=== PATIENT | female | born 1940 ===

== ENCOUNTER 2018-07-16 13:11 | Emergency (ER) | payer MEDICARE ==
[2018-07-16 13:11] VITALS: BMI 25.0
--- NOTE | 2018-07-16 13:59 | C.PDOC ---
History Of Present Illness Patient is a 77 year old female with no past medical history who presents for 2- 3 months of generalized right sided body pain especially on her right rib. Patient denies any trauma or falls. Patient cannot describe the pain. Patient says the rib pain is 10/10. Patient denies any chest pain, palpitations, or shortness of breath. Patient denies any fevers, abdominal pain, nausea, vomiting, constipation, or diarrhea. Patient is able to use the right side of her body without difficulty. Patient ambulates without difficulty. Patient recently travelled to [place] about 1 month ago, but says the symptoms started 1-2 months before her trip and have persisted. Time Seen by Provider: 07/16/18 13:59 Chief Complaint (Nursing): Medical Clearance History Per: Patient History/Exam Limitations: no limitations Onset/Duration Of Symptoms: Days Current Symptoms Are (Timing): Still Present Severity: Moderate Past Medical History Vital Signs: Last Vital Signs Temp 98.1 F 07/16/18 13:13 Pulse 64 07/16/18 13:13 Resp BP 165/99 H 07/16/18 13:13 Pulse Ox 97 07/16/18 13:13 - Medical History PMH: No Chronic Diseases Other Surgeries: D+C Family History: States: No Known Family Hx - Social History Hx Tobacco Use: No Hx Alcohol Use: No Hx Substance Use: No - Immunization History Hx Tetanus Toxoid Vaccination: No Hx Influenza Vaccination: Yes Hx Pneumococcal Vaccination: Yes Review Of Systems Constitutional: Negative for: Fever, Chills Cardiovascular: Negative for: Chest Pain, Palpitations Respiratory: Negative for: Cough, Shortness of Breath Gastrointestinal: Negative for: Nausea, Vomiting, Abdominal Pain, Diarrhea, Constipation Genitourinary: Negative for: Dysuria Musculoskeletal: Positive for: Other (generalized right sided body pain) Skin: Negative for: Rash Neurological: Negative for: Weakness, Numbness Physical Exam - Physical Exam Appears: Non-toxic, No Acute Distress Skin: Normal Color, Warm Head: Atraumatic, Normacephalic, No Tenderness Oral Mucosa: Moist Tongue: Normal Appearing Throat: Normal, No Erythema Chest: Other (mild right lower rib pain to palpation) Cardiovascular: Rhythm Regular Respiratory: Normal Breath Sounds, No Decreased Breath Sounds, No Accessory Muscle Use, No Rales, No Rhonchi, No Wheezing Gastrointestinal/Abdominal: Bowel Sounds, Soft, No Tenderness Back: Normal Inspection Extremity: Normal ROM, No Tenderness, No Pedal Edema Neurological/Psych: Oriented x3 Gait: Steady Other Neurological Findings: No Facial Palsy Extremity: Right: No Drift (full ROM), Left: No Drift, Upper: No Drift, Lower: N o Drift ED Course And Treatment O2 Sat by Pulse Oximetry: 97 Medical Decision Making Medical Decision Making: Impression: right sided musculoskeletal pain no acute injury stable for discharge supportive therapy- patient to take Tylenol or Motrin for pain Patient to follow up with PMD. Disposition Counseled Patient/Family Regarding: Diagnosis, Need For Followup - Disposition Referrals: Keyon Banerjee MD [Staff Provider] - Disposition: HOME/ ROUTINE Disposition Time: 14:29 Condition: GOOD Additional Instructions: WARREN BANERJEE, thank you for letting us take care of you today. Your provider was Stormy Jon MD and you were treated for BODYPAIN. The emergency medical care you received today was directed at your acute symptoms. It may take several days for your symptoms to resolve. Return to the Emergency Department if your symptoms worsen, do not improve, or if you have any other problems. Patient may take Motrin or Tylenol as needed for pain. Please contact your doctor or call one of the physicians/clinics you have been referred to that are listed on the Patient Visit Information form that is included in your discharge packet. Bring any paperwork you were given at discharge with you along with any medications you are taking to your follow up visit. Our treatment cannot replace ongoing medical care by a primary care provider outside of the emergency department. Thank you for allowing the [facility] team to be part of your care today. Instructions: High Blood Pressure (DC), Muscle and Bone Pain (DC) Forms: [facility] (Mauritian) - Clinical Impression Clinical Impression: Pain of right side of body
[2018-07-16 14:43] VITALS: BP 156/77; PULSE 60; RESP 16; TEMP 98
[2018-07-16 17:11] VITALS: O2SAT 97
== END 2018-07-16 14:43 | disposition home or self-care (01) ==
LOC: C.ER 13:11
DX: R52 Pain, unspecified (principal)